=== PATIENT | female | born 1980 | race Caucasian/White ===

== ENCOUNTER 2016-05-16 15:21 | Outpatient (CLI) | payer OTHER ==
[~2016-05-16] VITALS: Ht 157.5 cm; Wt 78.0 kg
[2016-05-16] MEDS ORDERED: ACET50TA PO (15:43)
[2016-05-16] MEDS ORDERED: PRENTAB9 PO (15:44)
[2016-05-16 15:48] VITALS: BP 137/72
[2016-05-16 18:03] VITALS: BP 138/77
== END 2016-05-16 18:15 | disposition home or self-care (01) ==
LOC: M LDO 15:21
PROVIDERS: ATTEND Obstetrics & Gynecology
DX: Z04.3 Encounter for examination and observation following other accident (principal); W19.XXXA Unspecified fall, initial encounter; Y92.9 Unspecified place or not applicable; Y93.52 Activity, horseback riding; Y99.9 Unspecified external cause status; O47.02 False labor before 37 completed weeks of gestation, second trimester; O09.212 Supervision of pregnancy with history of pre-term labor, second trimester; O09.512 Supervision of elderly primigravida, second trimester; Z3A.24 24 weeks gestation of pregnancy

== ENCOUNTER 2016-08-25 12:58 | Outpatient (CLI) | payer OTHER ==
[~2016-08-25] VITALS: Ht 157.5 cm; Wt 80.0 kg
[~2016-08-25 12:58] MED LIST: ACET50TA PO; PRENTAB9 PO
[2016-08-25 13:19] VITALS: BP 140/88
[2016-08-25] MEDS ORDERED: RANI15TA PO (14:51)
== END 2016-08-25 14:42 | disposition home or self-care (01) ==
LOC: M LDO 12:58
PROVIDERS: ATTEND Student in an Organized Health Care Education/Training Program
DX: O47.1 False labor at or after 37 completed weeks of gestation (principal); Z3A.39 39 weeks gestation of pregnancy

== ENCOUNTER 2016-08-27 07:15 | Inpatient (IN) | payer OTHER ==
[~2016-08-27] VITALS: Ht 157.5 cm; Wt 80.0 kg
[2016-08-27] VITALS (39 sets, daily range): BP systolic 110–160; BP diastolic 60–101
[~2016-08-27 07:15] MED LIST changes: +RANI15TA PO
[2016-08-27] MEDS ORDERED: LR 1,000 ML IV SCH (07:37)
[2016-08-27] MEDS ORDERED: LACTATED RINGER'S 1000 ML IV ONE (07:45)
[2016-08-27] MEDS ORDERED: FENTANYL 2MCG/ML ROPIVACAINE 0.2% IN 0.9% NACL 200ML IVBAG As Ordered ONE (08:18)
[2016-08-27] MEDS ORDERED: OXYTOCIN 30 UNITS IN 0.9% NaCl 500ML IV BAG (J2590) As Ordered ONE (08:19)
[2016-08-27 08:24] LABS: MEAN CORPUSCULAR HEMOGLOBIN 29.5 pg (27.0-33.0); MEAN CORPUSCULAR VOLUME 86.9 fl (80.0-96.0); RED CELL DISTRIBUTION WIDTH 12.8 % (11.5-14.5); WHITE BLOOD COUNT 13.6 K/mm3 (4.0-10.0)
[2016-08-27] MEDS ORDERED: FENTANYL/ROPIVACAINE/NACL BAG 200 ML EPIDURAL SCH (09:30)
[2016-08-27] MEDS ORDERED: REFRIGERATOR IV KEYS XX PRN (09:30)
[2016-08-27] MEDS ORDERED: EPIDURAL COMMENT XX SCH (09:30)
[2016-08-27] MEDS ORDERED: NALOXONE INJ 0.4 MG/1 ML VIAL (J2310) IV PRN (09:30)
[2016-08-27] MEDS ORDERED: LACTATED RINGER'S 1000 ML IV PRN (09:30)
[2016-08-27] MEDS ORDERED: diphenhydrAMINE INJ 50MG/ML VIAL (J1200) IV PRN (09:30)
[2016-08-27] MEDS ORDERED: EPIDURAL/PCA KEYS XX PRN (09:30)
[2016-08-27] MEDS ORDERED: ePHEDrine SULFATE 25 MG/5 ML(5MG/ML) SYRINGE IV PRN (09:30)
[2016-08-27] MEDS ORDERED: ONDANSETRON 4MG/2ML VIAL (J2405) IV PRN (09:30)
[2016-08-27 14:06] LABS: CORD GAS ABE V -0.9; CORD GAS HCO3 V 26.1 MEQ/L; CORD GAS PCO2 V 51.8 mmHg; CORD GAS PH V 7.321 UNITS; CORD GAS PO2 V 24.4 mmHg; CORD GAS SBC V 22.5 MEQ/L; CORD GAS TCO2 V 27.7 MEQ/L
[2016-08-27 14:13] LABS: CORD GAS ABE A 0.5; CORD GAS HCO3 A 29.9 MEQ/L; CORD GAS O2 SAT A 21.1 %; CORD GAS PCO2 A 68.4 mmHg; CORD GAS PH A 7.258 UNITS; CORD GAS PO2 A 14.8 mmHg; CORD GAS SBC A 22.8 MEQ/L
[2016-08-27] MEDS ORDERED: OXYTOCIN DRIP 30 UNITS in APPROPRIATE DILUENT 1 EA IV SCH (14:20)
[2016-08-27] MEDS ORDERED: METHYLERGONOVINE MALEATE 0.2 MG TAB PO PRN (14:30)
[2016-08-27] MEDS ORDERED: ANUSOL HC CREAM 30GM TOP PRN (14:30)
[2016-08-27] MEDS ORDERED: DIBUCAINE 1% OINTMENT 30GM TOP PRN (14:30)
[2016-08-27] MEDS ORDERED: RHOGAM 300 MCG (1500 IU) INJ (J2790) IM SCH (14:30)
[2016-08-27] MEDS ORDERED: OXYTOCIN INJ 10 UNITS/ML VIAL (J2590) IV ONE (14:30)
[2016-08-27] MEDS ORDERED: DOCUSATE SODIUM 100 MG CAP PO PRN (14:30)
[2016-08-27] MEDS ORDERED: MEASLES,MUMPS,RUBELLA VACCINE INJ (MMR-II) (90707) SC SCH (14:30)
[2016-08-27] MEDS ORDERED: MOM 30ML SUSPENSION UDC PO PRN (14:30)
[2016-08-27] MEDS ORDERED: OXYTOCIN INJ 10 UNITS/ML VIAL (J2590) As Ordered ONE (14:42)
[2016-08-27] MEDS: PRENATAL VITAMIN TAB PO SCH (16:03)
[2016-08-27] MEDS: ACETAMINOPHEN 500 MG TAB PO PRN (17:56)
[2016-08-27] MEDS: IBUPROFEN 800 MG TAB PO PRN (20:05)
--- NOTE | 2016-08-27 22:07 | IPN ---
DATE: 08/27/2016 This lady and her have requested circumcision of their male infant. After discussing the risks and benefits of circumcision, the medical and nonmedical indications, penile block and aftercare, expressed understanding of the penile block aftercare, signed and witnessed the consent form. All questions were answered. We await the clearance by the statistical clerk advertising.
--- NOTE | 2016-08-27 23:07 | DN ---
DATE: 08/27/2016 This lady was admitted in active labor. Had an epidural in place. Delivered spontaneously a live male infant, 8 pounds 5 ounces, 3770 grams. scores of 9 and 9 at one and five minutes, respectively. Cord around the neck once, loose. Placenta delivered spontaneously thereafter. Three-vessels in the cord. Membranes and tissues intact. Perineum was intact. Cervix was intact. Lateral garcía were intact. Uterus contracted well under Pitocin. The patient and the baby tolerating procedure well.
[2016-08-28] MEDS: ACETAMINOPHEN 500 MG TAB PO PRN ×3 (01:49→18:00)
[2016-08-28] MEDS: IBUPROFEN 800 MG TAB PO PRN ×2 (05:28→15:51)
[2016-08-28 05:37] VITALS: BP 131/83
[2016-08-28 07:16] LABS: MEAN CORPUSCULAR HEMOGLOBIN 29.8 pg (27.0-33.0); MEAN CORPUSCULAR HGB CONC 33.8 g/dl (32.0-36.5); MEAN CORPUSCULAR VOLUME 88.1 fl (80.0-96.0); RED CELL DISTRIBUTION WIDTH 12.9 % (11.5-14.5); WHITE BLOOD COUNT 11.8 K/mm3 (4.0-10.0)
[2016-08-28] MEDS: PRENATAL VITAMIN TAB PO SCH (08:02)
--- NOTE | 2016-08-28 08:52 | IPN ---
DATE: 08/28/2016 This lady is a 3 now para 3 who was admitted in active labor, spontaneous vaginal delivery live male 8 pounds 5 ounces, 3770 grams, of 9 and 9 at one and five minutes respectively. Arterial pH 7.25, base excess 0.5, venous pH 7.32, base excess -0.9. Today is her day #1. We are awaiting clearance for circumcision of their infant. Her vital signs today: Her blood pressure 131/83, respirations 16, pulse 74, temperature 97.6. Her admitting hemoglobin 12.7, hematocrit 37.5, platelets 281. day #1 hemoglobin 10.5, hematocrit 31.0, platelets 203. We discussed phlebitis, cystitis, mastitis, endometritis and cellulitis, diet, exercise, pain management, perineal breast and wound care. Her had a vasectomy 6 weeks ago and will be going for a checkup in a short period of time. The rest the examination is unremarkable. Thyroid is normal. No JVD, bruits. Lungs are clear bilaterally to bases. No wheezes or rhonchi. No CVA tenderness. Abdomen soft. Uterus two below. Lochia is moderate. Four quadrant bowel sounds are noted. Perineum is intact. The patient is mobilizing, breast-feeding and anxious to go home. In summary, we have a term gestation delivered a live male , uncomplicated.
[2016-08-28 18:00] VITALS: BP 142/83
[2016-08-29] MEDS: IBUPROFEN 800 MG TAB PO PRN (03:01)
[2016-08-29 05:38] VITALS: BP 146/80
[2016-08-29] MEDS ORDERED: IBUP-1114 PO (08:08)
[2016-08-29] MEDS ORDERED: ACET50TA PO (08:08)
[2016-08-29] MEDS ORDERED: COLA100C3 PO (08:09)
[2016-08-29] MEDS: PRENATAL VITAMIN TAB PO SCH (09:02)
== END 2016-08-29 13:40 | disposition home or self-care (01) | DRG 775 ==
LOC: M LDO 07:15 → M LDI 07:34 → M OBS 15:58
PROVIDERS: ADMIT Obstetrics & Gynecology; ATTEND Obstetrics & Gynecology
PROC: 10E0XZZ Delivery of Products of Conception, External Approach (ICD-10-PCS; principal; 2016-08-27)
DX: O69.81X0 Labor and delivery complicated by cord around neck, without compression, not applicable or unspecified (principal); Z3A.39 39 weeks gestation of pregnancy; Z37.0 Single live birth